=== PATIENT | female | born 1960 | race Caucasian/White ===

== ENCOUNTER 2016-07-15 19:39 | Emergency (ER) | payer MEDICARE, MEDICAID ==
[2016-07-15 19:58] VITALS: BP 128/62; PULSE 88; TEMP 98.6; BMI 23.0
--- NOTE | 2016-07-15 21:04 | EDPRACDOC ---
ED Seizure HPI - General Information Chief Complaint: Seizure Stated Complaint: DIARRHEA Time Seen by Provider: 07/15/16 20:33 Information Source: Patient Mode Of Arrival: Ambulance Home Medications: Home Medications Levetiracetam [Keppra] 1,000 mg PO BID 08/10/15 Levothyroxine [Synthroid, Levoxyl] 75 mcg PO DAILY 10/06/15 POTASSIUM CHLORIDE Tablet [K-DUR 20 mEq Tablet*] 20 meq PO DAILY 11/14/15 TOPIRAMATE (Anticonvulsant) [Topamax] 300 mg PO BID 11/14/15 Montelukast Sodium [Singulair] 10 mg PO DAILY 02/17/16 Loratadine [Claritin] 10 mg PO DAILY 05/04/16 Ergocalciferol (Vitamin D2) [Vitamin D] 50,000 units PO WEEKLY 07/15/16 Ibuprofen 800 mg PO TID 07/15/16 Metformin HCl 500 mg PO BID 07/15/16 Allergies/Adverse Reactions: Allergies Allergy/AdvReac Type Severity Reaction Status Date / Time Penicillins Allergy Unknown Unknown/See Verified 07/15/16 19:57 Comments - History of Present 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 Pt was in recliner and did not fall or hit her head per her brother who witnessed, denies tongue biting or incontinence. pt was quickly alert and oriented afterwards per brother and EMS. Denies fever, N/V/ D , cp, sob, chnage in urine or BM, cough, sore throat. Med hx = seizures. Witnessed: YES Postictal: No Episodes: Reports: single episode today, recent history, remote history Seizure Type: Reports: Other (both arms jerking) Seizure Trigger: Reports: Unknown Prior to Seizure: Reports: Other (sitting in recliner) During Seizure: Reports: Salivation (drooling) Immediately After Seizure: Reports: Normal Mentation Relevant History of: Reports: None Associated Signs & Symptoms: Reports: Headache - [place] Coma scale Coma Scale Eye Opening: Spontaneous Coma Scale Motor: Obeys Commands Coma Scale Verbal: Oriented Coma Scale Total: 15 - Treatment Prior to ED Arrival Reported Medications/Treatment [employer] EMS Treatment BLS IV No ED Past Medical History - History Reviewed Yes Nurses notes reviewed and agree except as marked - Patient Medical History Neurological History: Reports: Seizures Cardiac History: Reports: Hypertension, Congestive Heart Failure, Hypercholesterolemia GI/ History: Reports: Renal Disease (CKD), Gastroesophageal Reflux Psychological History: Denies: Depression Systemic History: Reports: Anemia (VITAMIN B12 DEFICIENCY), Diabetes, Hypothyroidism Additional Past Medical History: MR Surgical History: Reports: Other (LEFT WRIST ORIF) - Family Medical History Reports: Diabetes. Denies: Cancer - Social Medical History Smoking Status: Never smoker EDM Review of Systems - Review of Systems ROS Negative Except as Marked: Yes All systems reviewed and were negative except as marked Neurological: Seizure - Physical Exam Constitutional: No apparent distress, Alert Oriented to: Time, Person, Place Last recorded Vital Signs: Last Vital Signs Temp 98.6 F 07/15/16 19:52 Pulse 88 07/15/16 19:52 Resp 18 07/15/16 19:52 BP 128/62 07/15/16 19:52 Pulse Ox 99 07/15/16 19:52 Oxygen Pulse Oxygen Saturation 99 O2 Device Room Air Oxygen Flow Rate Fraction of Inspired Oxygen ( FIO2) - HEENT Head: Normal Eye Exam: negative: Conjunctival Injection, Scleral Icterus Oropharynx: negative: Drooling TMJ: Normal Nose: No Symptoms Reported Neck: Normal - Respiratory/Cardiovascular Respiratory: Normal - CTA Cardiovascular: Normal - GI Auscultation: Normal Palpation: Normal Tenderness: Non tender - Musculoskeletal Back: Normal Extremities: Normal - Integumentary Skin: Normal - Neurologic Mood Description: Normal Thought: Coherent Perception: Normal Decision Time to Discharge: 21:06 - Departure Disposition: Home Condition: Stable Final Diagnosis: Seizure Instructions: Seizures Education/Counseling Given To: Patient, Family Member Education/Counseling Given Regarding: Diagnosis, Treatment, Prognosis, Follow Up Referrals: Patricia Lopez MD [Primary Care Provider] - One Week Additional Instructions: Follow up with primary care. Return to ED for any new or worsening symptoms.
== END 2016-07-15 21:25 | disposition home or self-care (01) ==
LOC: ED 19:39
DX: R56.9 Unspecified convulsions (principal)
CPT/HCPCS: 99282

== ENCOUNTER 2016-07-31 19:19 | Emergency (ER) | payer MEDICARE, MEDICAID ==
[2016-07-31 19:20] VITALS: BMI 23.0
[2016-07-31 20:00] VITALS: TEMP 98.4
[2016-07-31] MEDS ORDERED: ACETAMINOPHEN 325 MG/TAB TABLET PO ONE (20:27)
--- NOTE | 2016-07-31 20:28 | EDPRACDOC ---
ED Seizure HPI - General Information Chief Complaint: Seizure Stated Complaint: SEIZURE Time Seen by Provider: 07/31/16 19:58 Information Source: Patient Mode Of Arrival: Ambulance Home Medications: Home Medications Levetiracetam [Keppra] 1,000 mg PO BID 08/10/15 Levothyroxine [Synthroid, Levoxyl] 75 mcg PO DAILY 10/06/15 POTASSIUM CHLORIDE Tablet [K-DUR 20 mEq Tablet*] 20 meq PO DAILY 11/14/15 TOPIRAMATE (Anticonvulsant) [Topamax] 300 mg PO BID 11/14/15 Montelukast Sodium [Singulair] 10 mg PO DAILY 02/17/16 Loratadine [Claritin] 10 mg PO DAILY 05/04/16 Ergocalciferol (Vitamin D2) [Vitamin D] 50,000 units PO WEEKLY 07/15/16 Ibuprofen 800 mg PO TID 07/15/16 Metformin HCl 500 mg PO BID 07/15/16 Allergies/Adverse Reactions: Allergies Allergy/AdvReac Type Severity Reaction Status Date / Time Penicillins Allergy Unknown Unknown/See Verified 07/15/16 19:57 Comments - History of Present 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 HAS KNOWN SEIZURE HISTORY. PT CURRENTLY A/O X 4 AND C/O HER USUAL POST-SEIZURE OZUNA. NO DISTRESS. Seizure Duration: MINS Witnessed: YES (BROTHER) Episodes: Reports: remote history Seizure Type: Reports: [place] Seizure Trigger: Reports: Unknown Immediately After Seizure: Reports: Confusion, Headache Relevant History of: Reports: None Associated Signs & Symptoms: Reports: None - [place] Coma scale Coma Scale Eye Opening: Spontaneous Coma Scale Motor: Obeys Commands Coma Scale Verbal: Oriented Coma Scale Total: 15 - Treatment Prior to ED Arrival Reported Medications/Treatment [employer] EMS Treatment BLS IV No ED Past Medical History - History Reviewed Yes Nurses notes reviewed and agree except as marked - Patient Medical History Neurological History: Reports: Seizures Cardiac History: Reports: Hypertension, Congestive Heart Failure, Hypercholesterolemia GI/ History: Reports: Renal Disease (CKD), Gastroesophageal Reflux Psychological History: Denies: Depression Systemic History: Reports: Anemia (VITAMIN B12 DEFICIENCY), Diabetes, Hypothyroidism Additional Past Medical History: MR Surgical History: Reports: Other (LEFT WRIST ORIF). Denies: Hysterectomy - Family Medical History Reports: Diabetes. Denies: Cancer - Social Medical History Smoking Status: Never smoker EDM Review of Systems - Review of Systems ROS Negative Except as Marked: Yes All systems reviewed and were negative except as marked ROS Unobtainable: Yes Hx Limited due to age/level of understanding of patient Constitutional: No Symptoms Reported Respiratory: No Symptoms Reported Cardiovascular: No Symptoms Reported Gastrointestinal: No Symptoms Reported Neurological: Seizure Musculoskeletal: No Symptoms Reported Integumentary: No Symptoms Reported - Physical Exam Constitutional: Alert (Awake), No apparent distress Oriented to: Time, Person, Place Last recorded Vital Signs: Last Vital Signs Temp 98.4 F 07/31/16 19:57 Pulse 85 07/31/16 19:57 Resp 20 07/31/16 19:57 BP 128/78 07/31/16 19:57 Pulse Ox 98 07/31/16 19:57 Oxygen Pulse Oxygen Saturation 98 O2 Device Room Air Oxygen Flow Rate Fraction of Inspired Oxygen ( FIO2) - HEENT Head: Normal Eye Exam: Normal Neck: Normal, Denies Pain, Midline - Respiratory/Cardiovascular Respiratory: Normal - CTA Cardiovascular: Normal - GI Palpation: Normal Tenderness: Non tender - Musculoskeletal Back: Normal Extremities: Normal - Integumentary Skin: Normal Lymphatics: Normal - Neurologic Cerebellar: Normal Mood Description: Normal Thought: Coherent Perception: Normal Decision Time to Discharge: 20:27 - Departure Disposition: Home Condition: Good Final Diagnosis: Generalized-onset seizures Instructions: Seizures Education/Counseling Given To: Patient, Family Member Education/Counseling Given Regarding: Diagnosis, Treatment, Follow Up Referrals: None,No Provider [Primary Care Provider] - One Week Prescriptions: No Action Levetiracetam [Keppra] 1,000 mg PO BID Levothyroxine [Synthroid, Levoxyl] 75 mcg PO DAILY TOPIRAMATE (Anticonvulsant) [Topamax] 300 mg PO BID POTASSIUM CHLORIDE Tablet [K-DUR 20 mEq Tablet*] 20 meq PO DAILY Montelukast Sodium [Singulair] 10 mg PO DAILY Loratadine [Claritin] 10 mg PO DAILY Metformin HCl 500 mg PO BID Ibuprofen 800 mg PO TID Ergocalciferol (Vitamin D2) [Vitamin D] 50,000 units PO WEEKLY Additional Instructions: CONTINUE MEDICATIONS PRESCRIBED.
[2016-07-31 20:34] VITALS: BP 132/77; PULSE 88
== END 2016-07-31 20:33 | disposition home or self-care (01) ==
LOC: ED 19:19
DX: G40.89 Other seizures (principal)
CPT/HCPCS: 99283; A9270; J3490